=== PATIENT | female | born 1985 | race African-American/Black ===

== ENCOUNTER 2016-09-20 19:59 | Emergency (ER) | payer SELFPAY ==
[2016-09-20 20:18] VITALS: BP 201/111; BMI 37.1
== END 2016-09-20 22:57 | disposition left against medical advice (07) ==
LOC: ER 20:21
DX: N94.89 Other specified conditions associated with female genital organs and menstrual cycle (principal)
CPT/HCPCS: 99281

== ENCOUNTER 2017-03-02 17:39 | Emergency (ER) | payer SELFPAY ==
[2017-03-02 17:45] VITALS: BP 178/84; BMI 37.1
[2017-03-02] MEDS ORDERED: XYLOCAINE 1 % (PLAIN) ONE (17:54)
--- NOTE | 2017-03-02 18:06 | DR.GENAD ---
HPI - PCP Primary Care Physician: de - Complaint/Symptoms Chief Complaint Doctors Comments: Patient presents with complaint of swelling of the ring finger of right hand. The finger in painful Chief Complaint:: right ring finger had a ingrown nail and it has made her finger swell and become painfull Self Treatment fo Chief Complaint: is on cephalexin 500 mg tid and toradol pill q6 hrs - Source History Provided: Patient - Mode of Arrival Mode of Arrival: Ambulatory - Timing Onset of Chief Complaint: 02/27/17 PMH - PMH Past Medical History: Yes Past Medical History: Diabetes, Hypertension Past Surgical History: No - Family History History of Family Medical Conditions: Yes Family Medical History: Diabetes Mellitus, Hypertension - Social History Does patient currently use any type of tobacco product: Yes Have you used tobacco products in the last 12 months: Yes Type of Tobacco Use: Cigarettes How many years tobacco product used: 3 Does any household member use tobacco: No Alcohol Use: None Do you use any recreational Drugs:: No Lives With: Family Lives Where: Home - infectious screening In the last 2 months have you had wt loss of >10#?: NO Have you had fever, night sweats or hemotysis?: No Have you traveled outside the country in the last 6 months?: No Isolation: Standard ROS - Review of Systems Eyes: No Symptoms Reported ENTM: No Symptoms Reported Respiratoy: No Symptoms Reported Cardiovascular: No Symptoms Reported Gastrointestinal/Abdominal: No Symptoms Reported Genitourinary: No Symptoms Reported Neurological: No Symptoms Reported Musculoskeletal: No Symptoms Reported Integumentary: See HPI, Lesions (3rd digit of right hand) Hematologic/Lymphatic: No Symptoms Reported Endocrine: No Symptoms Reported Psychiatric: No Symptoms Reported All Other Systems: Reviewed and Negative PE - Vital Signs Vitals: Temperature 97.6 F Pulse Rate 102 Respiratory Rate 18 Blood Pressure 178/84 O2 Sat by Pulse Oximetry 100 - General General Appearance: Alert, In No Apparent Distress - Head Head Exam: Normal Inspection, Atraumatic - Eyes Eye exam: Normal Appearance, PERRL, EOMI - ENT ENT Exam: Normal Exam External Ear Exam: Normal External Inspection TM/Canal Exam: Bilateral Normal Nose Exam: Normal Nose Exam Mouth Exam: Normal Inspection Throat Exam: Normal Inspection - Neck Neck Exam: Normal Inspection, Full ROM - Chest Chest Inspection: Normal Inspection - Respiratory Respiratory Exam: Normal Lung Sounds Bilat Respiratory Exam: Bilateral Clear to Auscultation - Cardiovascular Cardiovascular Exam: Regular Rate, Normal Rhythm - Abdominal Exam Abdominal Exam: Normal Inspection Abdominal Tenderness: negative: RUQ, RLQ, LUQ, LLQ, Epigastrium, Suprapubic, Diffuse, Mild, Moderate, Severe, Other - Extremities Extremities Exam: Normal Inspection - Back Back Exam: Normal Inspection - Neurologic Neurological Exam: Alert, Oriented X3, CN II-XII Intact - Psychiatric Psychiatric Exam: Normal Affect, Normal Mood - Skin Skin Exam: Warm, Dry, Intact Procedures - Incision and Drainage I & D Procedure: betadine prep, sterile drapes applied, sterile dressing applied Progress: #11 blade used for I&D-incision made with extrusion of purulent material from nail bed - Diagnosis Discharge Problem: Acute paronychia of finger of right hand - Discharge Plan Condition: Stable - Follow ups/Referrals Follow ups/Referrals: CHARLENE DE [Primary Care Provider] - 3 days - Instructions
== END 2017-03-02 18:28 | disposition home or self-care (01) ==
LOC: ER 17:46
PROC: 0X9J3ZZ Drainage of Right Hand, Percutaneous Approach (ICD-10-PCS; principal; 2017-03-02)
DX: L03.011 Cellulitis of right finger (principal)
CPT/HCPCS: 10060; 99282; J2001

== ENCOUNTER 2018-05-02 06:24 | Inpatient (IN) ==
[2018-05-02] MEDS ORDERED: D5LR 1L W PITOCIN 10 UNITS/L 10 UNITS/1,000 ML BAG IV ONE ×2 (06:29→21:34)
[2018-05-02] MEDS ORDERED: PITOCIN ONE (06:30)
[2018-05-02] MEDS ORDERED: D5 1/2 NS 1000 ML 1,000 ML IV ONE (06:30)
[2018-05-02] MEDS ORDERED: NS 100 ML IV 100 ML IV ONE ×5 (06:30→23:40)
[2018-05-02] MEDS ORDERED: AMPICILLIN VIAL 2 GRAM ONE (06:30)
[2018-05-02] MEDS ORDERED: D5 1/2 NS 1L W PITOCIN 20 UNITS/L 20 UNITS/1,000 ML BAG IV ONE (06:30)
[2018-05-02] MEDS: AMPICILLIN VIAL 2 GRAM 2 G in NS 100 ML IV + SPIKE MINIBAG* 100 ML IV SCH (06:40)
[2018-05-02] MEDS ORDERED: DILAUDID INJ IVP PRN (06:48)
[2018-05-02] MEDS ORDERED: REGLAN INJ 10 MG VIAL IVP PRN (06:48)
[2018-05-02] MEDS ORDERED: PHENERGAN INJ 25 MG IV PRN (06:48)
[2018-05-02] MEDS ORDERED: PITOCIN IVP ONE (06:48)
[2018-05-02] MEDS ORDERED: D5 1/2 NS 1000 ML 1,000 ML IV SCH (07:00)
[2018-05-02 07:24] LABS: BASOPHILS # (AUTO) 0.2 X10^3/uL (0.0-0.1); BASOPHILS % (AUTO) 1.2 % (0.2-1.0); EOSINOPHILS # (AUTO) 0.1 x10^3/uL (0.0-0.2); EOSINOPHILS % (AUTO) 0.5 % (0.9-2.9); HEMATOCRIT 33.4 % (36.0-47.0); LYMPHOCYTES # (AUTO) 3.9 X10^3/uL (1.3-2.9); LYMPHOCYTES % (AUTO) 24.5 % (21.0-51.0); MEAN CORPUSCULAR HEMOGLOBIN 29.1 pg (27.0-34.0); MEAN CORPUSCULAR HGB CONC 32.9 g/dL (33.0-35.0); MEAN CORPUSCULAR VOLUME 88.5 fL (80.0-100.0); MEAN PLATELET VOLUME 9.4 fL (7.4-11.0); MONOCYTES # (AUTO) 0.6 x10^3/uL (0.3-0.8); NEUTROPHILS % (AUTO) 69.8 % (42.0-75.0); PLATELET COUNT 348 X10^3/uL (150.0-450.0); RED BLOOD COUNT 3.78 X10^6/uL (3.5-5.4); RED CELL DISTRIBUTION WIDTH 15.4 % (11.6-16.5); WHITE BLOOD COUNT 15.8 X10^3/uL (3.6-10.0)
[2018-05-02 07:27] LABS: BLOOD UREA NITROGEN 6 mg/dL (7-18); CALCIUM 8.7 mg/dL (8.5-10.1); CARBON DIOXIDE 22.3 mmol/L (21-32); CHLORIDE 103 mmol/L (98-107); CREATININE 0.68 mg/dL (0.55-1.02); SODIUM 137 mmol/L (136-145); eGFR NON BLACK RACES > 60 (>60)
[2018-05-02] MEDS ORDERED: CYTOTEC ONE (08:15)
[2018-05-02] MEDS ORDERED: CYTOTEC VG ONE (08:16)
[2018-05-02] MEDS ORDERED: AMPICILLIN VIAL 1 GRAM ONE ×4 (11:03→23:40)
[2018-05-02] MEDS: AMPICILLIN VIAL 1 GRAM 1 G in NS 50 ML IV + SPIKE MINIBAG* 50 ML IV SCH ×4 (11:04→20:00)
[2018-05-02] MEDS: D5LR 1L W PITOCIN 10 UNITS/L 10 UNITS/1,000 ML BAG IV PRN ×2 (12:30→22:49)
[2018-05-02] MEDS ORDERED: NUBAIN INJ 10 ONE ×3 (16:19→22:19)
[2018-05-02] MEDS: NUBAIN INJ 200 MG VIAL MULTIDOSE IVP PRN ×3 (16:19→22:20)
[2018-05-02] MEDS ORDERED: LR 1000 ML IV 1,000 ML IV ONE (18:58)
[2018-05-02] MEDS ORDERED: XYLOCAINE 1 % (PLAIN) ONE (18:58)
[2018-05-02] MEDS ORDERED: FENTANYL INJ 100 mcg ONE (18:58)
[2018-05-02] MEDS ORDERED: NAROPIN EPIDURAL 0.2% + FENTANYL 90MCG 60 ML EPI ONE (18:59)
[2018-05-02] MEDS ORDERED: ADRENALINE CHL INJ ONE (18:59)
[2018-05-02] MEDS ORDERED: XYLOCAINE-MPF 1% ONE (18:59)
[2018-05-03] MEDS: AMPICILLIN VIAL 1 GRAM 1 G in NS 50 ML IV + SPIKE MINIBAG* 50 ML IV SCH ×3 (00:10→08:15)
[2018-05-03] MEDS ORDERED: NUBAIN INJ 10 ONE ×3 (00:55→09:11)
[2018-05-03] MEDS: NUBAIN INJ 200 MG VIAL MULTIDOSE IVP PRN ×3 (00:56→09:18)
[2018-05-03] MEDS ORDERED: NS 100 ML IV 100 ML IV ONE ×2 (03:40→08:17)
[2018-05-03] MEDS ORDERED: AMPICILLIN VIAL 1 GRAM ONE ×2 (03:41→08:17)
[2018-05-03] MEDS ORDERED: ADRENALINE CHL INJ ONE (04:06)
[2018-05-03] MEDS ORDERED: NAROPIN EPIDURAL 0.2% + FENTANYL 90MCG 60 ML EPI ONE (04:06)
[2018-05-03] MEDS ORDERED: D5LR 1L W PITOCIN 10 UNITS/L 10 UNITS/1,000 ML BAG IV ONE (06:06)
[2018-05-03] MEDS: D5LR 1L W PITOCIN 10 UNITS/L 10 UNITS/1,000 ML BAG IV PRN (06:10)
[2018-05-03 07:36] LABS: BLOOD UREA NITROGEN 4 mg/dL (7-18); CALCIUM 8.4 mg/dL (8.5-10.1); CARBON DIOXIDE 21.4 mmol/L (21-32); CHLORIDE 105 mmol/L (98-107); CREATININE 0.67 mg/dL (0.55-1.02); SODIUM 139 mmol/L (136-145); eGFR NON BLACK RACES > 60 (>60)
[2018-05-03] MEDS ORDERED: DILAUDID INJ ONE ×2 (10:40→11:38)
[2018-05-03] MEDS: AMPICILLIN VIAL 2 GRAM 2 G in NS 100 ML IV + SPIKE MINIBAG* 100 ML IV SCH (10:47)
[2018-05-03] MEDS ORDERED: DILAUDID INJ IVP PRN (12:56)
[2018-05-03] MEDS ORDERED: BENADRYL INJ 50 MG VIAL IVP PRN ×2 (12:56→14:18)
[2018-05-03] MEDS ORDERED: ZOFRAN INJ 4 MG VIAL IVP PRN ×2 (12:56→14:18)
[2018-05-03] MEDS ORDERED: PHENERGAN INJ 25 MG IVP PRN (12:56)
[2018-05-03] MEDS ORDERED: REGLAN INJ 10 MG VIAL IVP PRN (12:56)
[2018-05-03] MEDS ORDERED: PERCOCET TAB 5/325 MG PO PRN (14:18)
[2018-05-03] MEDS ORDERED: MYLICON TAB 80 MG CHEW PO PRN (14:18)
[2018-05-03] MEDS ORDERED: NARCAN INJ IVP PRN ×2 (14:18)
[2018-05-03] MEDS ORDERED: D5 1/2 NS 1000 ML 1,000 ML with PITOCIN 20 UNITS IV SCH ×2 (14:18)
[2018-05-03] MEDS ORDERED: TORADOL 30 MG VIAL IVP PRN (14:18)
[2018-05-03] MEDS ORDERED: ADACEL or BOOSTRIX TDaP VACCINE IM ONE (14:18)
[2018-05-03] MEDS ORDERED: PITOCIN ONE (15:39)
[2018-05-03] MEDS ORDERED: MARCAINE SPINAL ONE (15:39)
[2018-05-03] MEDS ORDERED: XYLOCAINE 1 % (PLAIN) ONE (15:39)
[2018-05-03] MEDS ORDERED: VERSED ONE (15:39)
[2018-05-03] MEDS: MOTRIN TAB 800 MG PO PRN (15:55)
[2018-05-03] MEDS: ZANTAC PO SCH (20:54)
[2018-05-04 05:19] LABS: HEMATOCRIT 21.8 % (36.0-47.0); HEMOGLOBIN 7.3 g/dL (12.0-16.0)
[2018-05-04] MEDS: PRENATAL PLUS PO SCH (08:44)
[2018-05-04] MEDS: ZANTAC PO SCH ×2 (08:44→20:03)
[2018-05-04] MEDS ORDERED: K-DUR TAB 20 MEQ PO PRN (09:48)
[2018-05-04] MEDS ORDERED: PHARMACY CONSULT - DOSE _____ XX SCH (10:00)
[2018-05-04] MEDS: MOTRIN TAB 800 MG PO PRN (10:59)
[2018-05-04] MEDS ORDERED: DEXFERRUM or INFED 25 MG in NS 100 ML IV 100 ML IV ONE (11:00)
[2018-05-04] MEDS ORDERED: DEXFERRUM or INFED 975 MG in NS 500 ML IV 500 ML IV NR (12:30)
[2018-05-04] MEDS: PERCOCET TAB 5/325 MG PO PRN (13:53)
[2018-05-05 05:32] LABS: HEMOGLOBIN 6.5 g/dL (12.0-16.0)
[2018-05-05 05:33] LABS: HEMATOCRIT 19.6 % (36.0-47.0)
[2018-05-05 08:30] VITALS: BP 131/58
[2018-05-05] MEDS: PRENATAL PLUS PO SCH (09:31)
[2018-05-05] MEDS: ZANTAC PO SCH (09:31)
[2018-05-05] MEDS: PERCOCET TAB 5/325 MG PO PRN (09:44)
== END 2018-05-05 13:05 | disposition home or self-care (01) | DRG 788 ==
LOC: LD 06:24 → MED/SURG 05-03 13:35
PROVIDERS: ADMIT Obstetrics & Gynecology Obstetrics; ATTEND Obstetrics & Gynecology Obstetrics
DX: Z3A.38 38 weeks gestation of pregnancy; O62.0 Primary inadequate contractions; Z23 Encounter for immunization; O64.8XX0 Obstructed labor due to other malposition and malpresentation, not applicable or unspecified; Z37.0 Single live birth
CPT/HCPCS: 36415; 80048; 85014; 85018; 85025; 86592; 86850; 86900; 86901; 90715; A4216; A4222; S0191; S0197; J0171; J0290; J0690; J1170; J1750; J2250; J2300; J2405; J2590; J3010; J7040; J7050; J7120; S5010